=== PATIENT | male | born 1950 | race Caucasian/White ===

== ENCOUNTER 2023-03-11 09:55 | Outpatient (AMB) | payer MEDICARE, OTHER, SELFPAY ==
[2023-03-11 09:56] VITALS: BP 112/68; PULSE 70; O2SAT 95; BMI 29.7
--- NOTE | 2023-03-11 09:56 | A.OFFVIS_ITS ---
Intake Vital Signs 03/11/23 09:56 Height 5 ft 10.5 in Weight 210 lb 2 oz BMI 29.7 BP 112/68 Blood Pressure Location Lt brachial Position Sitting Pulse 70 Pulse Source Pulse Oximeter Pulse Oximetry (%) 95 Oxygen Delivery Method Room Air Intake Visit Reasons: NPV / Sudden Visual Changes / Hx Migraines Intake Note: Pt presents as a NPV for sudden visual changes, hx of Migraines. visual migraines in left eye for years with aura and spikey yellows and blacks. 2019 dizzy and woozy, another time on the highway. Pt states its disorienting. pt states its like a braxton or black shadow coming down across. it was happening 2-3 times a week. I had lung cancer and it was on the back burner. The clopidogrel seems to work. When pt stopped medication he lost vision in right eye again, visual migraines came back. Pt states since being on the clopidogrel, he hasn't had a visual migraine. 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: No Allergies Penicillins Allergy (Unknown, Verified 03/11/23 10:08) Unknown Medication List - Last Reconciled 03/11/23 by REGAN Hernández apixaban (Eliquis) 5 mg PO BID atorvastatin 40 mg PO DAILY clobetasol 0.05% 1 appl topical BID clopidogrel 75 mg PO DAILY empagliflozin (Jardiance) 10 mg PO DAILY furosemide 40 mg PO DAILY hydrocortisone 2.5% 1 appl topical BID PRN ketoconazole 2% 1 appl topical DAILY metoprolol succinate ER 50 mg PO BID metoprolol succinate ER mg PO sacubitril-valsartan 24-26 mg (Entresto) 1 tab PO BID spironolactone 25 mg PO DAILY spironolactone 25 mg PO DAILY HPI HPI Comments History of Present Illness Details 72-yr-old male presents for new pt evaluation of episodes of transient right visual loss. Pt reports PMH significant for lung CA, CHF, a-fib s/p [employer] ICD pacemaker. Pt reports he has a h/o left eye visual aura x's the past 20-30 yrs- would see spiky goddard but not a/w headache, often triggered by certain lights (flickering lights, computers, TV). Then in 2019, he started having 10-30 minute episodes of dizziness, wooziness, disorientation, and and right eye vision loss. The 1st episode he was out shopping. Shortly there after, he had another episode which occurred while he was driving and could not see anything. He then had another episode, where he was sitting in his recliner- during this episode he realized that the vision loss was right sided- like a curtain had been pulled 70% down. These episodes are not a/w headache, nausea, numbness/tingling, focal weakness, watery eyes, red eyes, runny nose, neck pain. He can have a stiff/tight enck at times. He denies any peripheral numbness/tingling, weakness, headaches, dizziness. He notes that it took him some time to have this evaluated, d/t the COVID-19 pandemic and his other health issues. He had a normal optometry eval, ophthalmology eval, and then saw vascular, Dr Thompson. Dr Thompson ordered a neck CTA which revealed a proximal left cervical vertebral artery. He was started on Plavix. On Plavix he has not had any episodes of the right eye vision episodes or the left eye visual aura. Of note, he was started on Eliquis in 2019 (after the onset of the right eye episodes), but this did not seem to any postive/negative effect the right eye s/s. Then more recently, he stopped the Plavix, as vascular was nervous about him continuing Plavix and Eliquis together continuously- within a week off the Plavix, he had a left eye visual aura and then a few days later he had a breakthrough typical right eye vision episode. He had a defibrillator pacemaker implanted in 2019. He was diagnosed w/ St 1A lung cancer in 2020- dx'd on screening d/t h/o tobcco use and underwent RLL lobectomy- he reports he has been in remission since. 04/25/21, CTA OF THE NECK IMPRESSION: 1. 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 Intracranial segment is patent. 2. No significant stenosis or occlusion of bilateral carotid arteries or right vertebral artery. Per Apr 2021 Dr Thompson note: Carotid duplex confirmed 50?to 69% stenosis of the right internal carotid artery without evidence stenosis left carotid artery. 07/23/2019?, [facility], Cardiac MRI w/wo: IMPRESSION: 1. Technically difficult study due to abnormal gating from arrhythmia. 2. The left ventricular chamber was moderate to severely dilated. There is mild global hypokinesis, most pronounced in the septum. There is markedly dyssynchrony between the septum and the lateral wall. End systolic measurements are unreliable due to gaiting abnormality. Visually, left ventricular systolic function appears moderately reduced, 30-40%. Normal LV wall thickness. 3. The RV chamber was normal in size. Overall right ventricular systolic function appears preserved. End systolic measurements unreliable due to gating abnormality. 4. Mild aortic insufficiency. 5. Abnormal first pass perfusion of the intraventricular septum consistent with left bundle branch block or, less likely ischemia. 6. Delayed postcontrast examination is of poor quality. There is likely inferior RV insertion site enhancement consistent with elevated pulmonary artery or right ventricular pressures. Cannot exclude a faint septal stripe of enhancement consistent with nonischemic fibrosis. No MRI evidence of myocardial infarction or hypertrophic cardiomyopathy. 7. There is a very small pericardial effusion. 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 PFSH Medical History (Updated 03/11/23 @ 13:12 by REGAN Hernández) Atrial fibrillation CHF (congestive heart failure) Lung cancer Pacemaker Surgical History (Updated 03/11/23 @ 10:13 by Homa Robles CMA) H/O heart surgery History of back surgery History of knee surgery S/P spinal surgery Family History (Updated 03/11/23 @ 10:14 by Homa Robles CMA) Father Hypertension Mother Diabetes Sister Breast cancer Review of Systems Const Details: See scanned ROS form Physical Exam Vital Signs: Last Vital Signs Pulse 70 03/11/23 09:56 BP 112/68 03/11/23 09:56 Pulse Ox 95 03/11/23 09:56 Oxygen Delivery Method Room Air 03/11/23 09:56 BMI result Body Mass Index 29.7 Const Orientation/consciousness: patient oriented x3 HEENT Other: No palpable scalp tenderness. Head: Yes normocephalic Resp Effort & Inspection: normal respiratory effort and able to speak in complete sentences Back/Spine/Pelvis Other: Bilateral posterior cervical tightness. Cervical ROM: full Left Spurling: normal Right Spurling: normal. Neuro Other: DTRs dulled throughout. General: patient oriented x3 Cranial nerves: Yes CN's II-XII intact bilaterally Cognition (Neuro): normal cognition Gait exam (Neuro): Normal gait present Motor exam (neuro): 5/5 motor strength present throughout Coordination: [id number] test normal Pupils: Normal pupillary reactivity/response: bilateral Psych Appearance: grossly normal Mental Status: mental status grossly normal Speech and movement: Normal speech and movement present Affect: normal affect Attitude: cooperative Thought process: Normal thought process present Assessment & Plan Assessment & Plan (1) Stenosis of left vertebral artery: Code(s): I65.02 - Occlusion and stenosis of left vertebral artery (2) 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 intracranial vascular process, ? migraine aura- responsive to Plavix Code(s): H53.121 - Transient visual loss, right eye Plan Pt advised to undergo CTA- head/neck- to assess status of left cervical vertebral artery stenosis and to assess for any intracranial vascular stenosis. Pt advised to undergo Brain MRI w/wo to assess for any intracranial etiologies of transient vision loss. He may continue Clopidogrel 75mg qd for now. Pt verbalizes understanding that he is at increased risk for bleeding w/ dual Clopidogrel-Eliquis use. If work-up is unremarkable, we could consider trying an alternate migraine aura prevention medication- such as lamotrigeen, topiramate, mementain, or ASA 81mg qd. There are small studies that show effectiveness in using Clopidogrel and ASA together to reduce migraine w/ aura following PFO closure. Follow-up after review of above and in clinic in 3 months or sooner prn. Orders: Orders CT angio head neck Today C34.90 - Malignant neoplasm of unspecified part of unspecified bronchus or lung, H53.121 - Transient visual loss, right eye, H53.9 - Unspecified visual disturbance, I48.91 - Unspecified atrial fibrillation, I65.09 - Occlusion and stenosis of unspecified vertebral artery MR head/brain wo/w con Today C34.90 - Malignant neoplasm of unspecified part of unspecified bronchus or lung, H53.121 - Transient visual loss, right eye, H53.9 - Unspecified visual disturbance, I48.91 - Unspecified atrial fibrillation, I65.09 - Occlusion and stenosis of unspecified vertebral artery Coding Level of Care Code New Pt Level 4 (19381) Diagnoses Stenosis of left vertebral artery I65.02 Visual aura H53.9 Transient visual loss of right eye H53.121
== END 2023-03-11 11:19 | disposition home or self-care (01) ==
PROVIDERS: Visit Provider Nurse Practitioner Family
DX: I65.02 Occlusion and stenosis of left vertebral artery (principal); H53.9 Unspecified visual disturbance; H53.121 Transient visual loss, right eye
CPT/HCPCS: 99204

== ENCOUNTER → 2023-03-11 09:55 | Outpatient (BNVA) | payer MEDICARE, OTHER, SELFPAY | PROVIDERS: Visit Provider Nurse Practitioner Family | DX: I65.02 Occlusion and stenosis of left vertebral artery (principal); H53.9 Unspecified visual disturbance; H53.121 Transient visual loss, right eye | CPT/HCPCS: 99202 ==

== ENCOUNTER 2023-06-17 11:09 | Outpatient (AMB) | payer MEDICARE, OTHER, SELFPAY ==
--- NOTE | 2023-06-17 11:28 | A.OFFVIS_ITS ---
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 if I'm not taking plavix Allergies Penicillins Allergy (Unknown, Verified 06/17/23 11:38) Unknown Medication List - Last Reconciled 06/17/23 by REGAN Hernández apixaban (Eliquis) 5 mg PO BID atorvastatin 40 mg PO DAILY clobetasol 0.05% 1 appl topical BID clopidogrel 75 mg PO DAILY empagliflozin (Jardiance) 10 mg PO DAILY furosemide 40 mg PO DAILY hydrocortisone 2.5% 1 appl topical BID PRN ketoconazole 2% 1 appl topical DAILY metoprolol succinate ER 50 mg PO BID metoprolol succinate ER mg PO sacubitril-valsartan 24-26 mg (Entresto) 1 tab PO BID spironolactone 25 mg PO DAILY spironolactone 25 mg PO DAILY HPI HPI Comments History of Present Illness Details 72-yr-old male presents for f/u visit. Pt denies any significant interval medical changes. Pt has not had any episodes of visual auras or difficulty focusing or partial left vision loss. Denies any visual migraine s/s. Denies any headaches. He has not had MRI yet. Needs to have a pre-screen CXR, which we will order today. [facility] Medical History (Updated 06/17/23 @ 11:47 by REGAN Hernández) CHF (congestive heart failure) Atrial fibrillation Lung cancer Pacemaker Surgical History S/P spinal surgery History of knee surgery H/O heart surgery History of back surgery Family History Father Hypertension Mother Diabetes Sister Breast cancer Review of Systems Const All systems reviewed & are unremarkable except as noted in HPI and below Physical Exam Vital Signs: Last Vital Signs Pulse 59 06/17/23 11:35 Pulse Ox 95 11/03/23 11:35 Oxygen Delivery Method Room Air 11/03/23 11:35 BMI result Body Mass Index 29.7 Const General: cooperative and no acute distress Orientation/consciousness: patient oriented x3 HEENT Head: Yes normocephalic Resp Effort & Inspection: normal respiratory effort and able to speak in complete sentences Neuro General: patient oriented x3, gait normal and CN's II-XI intact bilaterally Cognition (Neuro): normal cognition Motor exam (neuro): 5/5 motor strength present throughout Psych Appearance: grossly normal Mental Status: mental status grossly normal Speech and movement: Normal speech and movement present Affect: normal affect Attitude: cooperative Thought process: Normal thought process present Thought content: Normal thought content present Insight: Good insight present (Psych) Judgement: Good judgement present (Psych) Assessment & Plan Assessment & Plan (1) Transient visual loss of right eye: Comment: ? intracranial vascular process, ? migraine aura- responsive to Plavix Code(s): H53.121 - Transient visual loss, right eye (2) Visual aura: Comment: Left- likely migraine aura w/o headache Code(s): H53.9 - Unspecified visual disturbance (3) Stenosis of left vertebral artery: Code(s): I65.02 - Occlusion and stenosis of left vertebral artery Plan Pt again advised to undergo CTA- head/neck- to assess status of left cervical vertebral artery stenosis and to assess for any intracranial vascular stenosis. Pt again advised to undergo Brain MRI w/wo to assess for any intracranial etiologies of transient vision loss. Will send order for prn Xanax. Orders sent to [facility] CXR ordered per radiologist request d/t pacemaker He may continue Clopidogrel 75mg qd for now. Pt verbalizes understanding that he is at increased risk for bleeding w/ dual Clopidogrel-Eliquis use. If work-up is unremarkable, we could consider trying an alternate migraine aura prevention medication- such as lamotrigeen, topiramate, mementain, or ASA 81mg qd. There are small studies that show effectiveness in using Clopidogrel and ASA together to reduce migraine w/ aura following PFO closure. Follow-up after review of above and in clinic in 3 months or sooner prn. Orders: Orders XR chest w apical lordotic Today I50.9 - Heart failure, unspecified, Z95.0 - Presence of cardiac pacemaker Medications: New alprazolam 0.25 mg orally 1 tab 30 minutes prior to MRI, may repeat x's 1; 2 tabs 0RF 1 day Coding Level of Care Code Est Pt Level 4 (95780) Diagnoses Transient visual loss of right eye H53.121 Visual aura H53.9 Stenosis of left vertebral artery I65.02
[2023-06-17 11:35] VITALS: PULSE 59; O2SAT 95; BMI 29.7
== END 2023-06-17 12:05 | disposition home or self-care (01) ==
PROVIDERS: Visit Provider Nurse Practitioner Family
DX: H53.121 Transient visual loss, right eye (principal); H53.9 Unspecified visual disturbance; I65.02 Occlusion and stenosis of left vertebral artery
CPT/HCPCS: 99214

== ENCOUNTER → 2023-06-17 11:09 | Outpatient (BNVA) | payer MEDICARE, OTHER, SELFPAY | PROVIDERS: Visit Provider Nurse Practitioner Family | DX: H53.121 Transient visual loss, right eye (principal); H53.9 Unspecified visual disturbance; I65.02 Occlusion and stenosis of left vertebral artery | CPT/HCPCS: 99212 ==

== ENCOUNTER 2023-09-21 10:20 | Outpatient (AMB) | payer MEDICARE, OTHER, SELFPAY ==
[2023-09-21 10:33] VITALS: BP 120/70; PULSE 62; O2SAT 98; BMI 29.8
--- NOTE | 2023-09-21 10:33 | A.OFFVIS_ITS ---
Intake Vital Signs 09/21/23 10:33 Height 5 ft 10 in Weight 208 lb BMI 29.8 BP 120/70 Blood Pressure Location Rt brachial Position Sitting Pulse 62 Pulse Source Pulse Oximeter Pulse Oximetry (%) 98 Oxygen Delivery Method Room Air Intake Visit Reasons: 3 mnts f/u for Visual Changes/Migraines-LVM Intake Note: Patient presents for 3 month follow up migraines. I've never had an issue or episode since I've been on clopidrogel. Allergies Penicillins Allergy (Unknown, Verified 09/21/23 10:36) Unknown Medication List - Last Reconciled 09/21/23 by REGAN Hernández alprazolam 0.25 mg orally 1 tab 30 minutes prior to MRI, may repeat x's 1; 1 day apixaban (Eliquis) 5 mg PO BID atorvastatin 40 mg PO DAILY clobetasol 0.05% 1 appl topical BID clopidogrel 75 mg PO DAILY empagliflozin (Jardiance) 10 mg PO DAILY furosemide 40 mg PO DAILY hydrocortisone 2.5% 1 appl topical BID PRN ketoconazole 2% 1 appl topical DAILY metoprolol succinate ER 50 mg PO BID metoprolol succinate ER mg PO sacubitril-valsartan 24-26 mg (Entresto) 1 tab PO BID spironolactone 25 mg PO DAILY spironolactone 25 mg PO DAILY HPI HPI Comments History of Present Illness Details 73-year-old male presents for f/u visit for visual changes. Pt is scheduled to undergo abdominal hernia repair in mid October. He will need to hold his Plavix for at least a week prior to the surgery. He has not had any interval recurrence of left ocular migraine symptoms. The left ocular aura symptoms are typically colorful visual distortions. He has not had any interval recurrence of right sided visual loss. The right-s ided visual symptoms: Stereotypic correa jagged, comes down and an angle to 40- 80% a vertical visual field, then over 15 minutes slowly dissipates into whiteness and then disappears completely, at which time vision returns. He has never had both left and right-sided visual symptoms at the same time. He states he is visual events do not occur with a headache or head discomfort. [facility] T2 and FLAIR hyperintensity foci in the white matter, likely reflecting mild small-vessel disease. He has not done the requested CTA of the head and neck. [facility] Medical History (Updated 09/21/23 @ 20:56 by REGAN Hernández) CHF (congestive heart failure) Atrial fibrillation Lung cancer Pacemaker Surgical History S/P spinal surgery History of knee surgery H/O heart surgery History of back surgery Family History Father Hypertension Mother Diabetes Sister Breast cancer Physical Exam Vital Signs: Last Vital Signs Pulse 62 09/21/23 10:33 BP 120/70 09/21/23 10:33 Pulse Ox 98 09/21/23 10:33 Oxygen Delivery Method Room Air 09/21/23 10:33 BMI result Body Mass Index 29.8 Const General: cooperative and no acute distress Orientation/consciousness: patient oriented x3 Resp Effort & Inspection: normal respiratory effort and able to speak in complete sentences Neuro General: patient oriented x3 Cranial nerves: Yes CN's II-XII intact bilaterally Cognition (Neuro): normal cognition Psych Appearance: grossly normal Mental Status: mental status grossly normal Speech and movement: Normal speech and movement present Affect: normal affect Attitude: cooperative Assessment & Plan Assessment & Plan (1) Transient visual loss of right eye: Comment: ? intracranial vascular process, ? migraine aura- responsive to Plavix, ? Amaurosis Fugax Code(s): H53.121 - Transient visual loss, right eye (2) Visual aura: Comment: Left- likely migraine aura w/o headache Code(s): H53.9 - Unspecified visual disturbance (3) Stenosis of left vertebral artery: Code(s): I65.02 - Occlusion and stenosis of left vertebral artery Plan Patient is again advised to undergo head and neck CTA to assess left vertebral artery stenosis and for intracranial occlusion, stenosis, aneurysm. Hold Plavix prior to upcoming hernia surgery as advised. Patient will continue to hold Plavix through the head and neck CTA. Patient is to monitor for return of ocular symptoms, in the past these have reoccurred within a few days of stopping Plavix. If these recur, we could consider a trial of Nurtec or Ubrelvy. Follow-up in 4 months or sooner as needed. Coding Level of Care Code Est Pt Level 4 (56804) Diagnoses Transient visual loss of right eye H53.121 Visual aura H53.9 Stenosis of left vertebral artery I65.02
== END 2023-09-21 11:36 | disposition home or self-care (01) ==
PROVIDERS: Visit Provider Nurse Practitioner Family
DX: H53.121 Transient visual loss, right eye (principal); H53.9 Unspecified visual disturbance; I65.02 Occlusion and stenosis of left vertebral artery
CPT/HCPCS: 99214

== ENCOUNTER → 2023-09-21 10:20 | Outpatient (BNVA) | payer MEDICARE, OTHER, SELFPAY | PROVIDERS: Visit Provider Nurse Practitioner Family | DX: H53.121 Transient visual loss, right eye (principal); H53.9 Unspecified visual disturbance; I65.02 Occlusion and stenosis of left vertebral artery | CPT/HCPCS: 99212 ==

== ENCOUNTER 2024-01-20 09:16 | Outpatient (AMB) | payer MEDICARE, OTHER, SELFPAY ==
--- NOTE | 2024-01-20 09:39 | MHC.OFFVIS ---
Vital Signs 01/20/24 09:40 Height 5 ft 10 in Weight 198 lb BMI 28.4 BP 130/72 Blood Pressure Location Rt brachial Pulse 65 Pulse Source Pulse Oximeter Pulse Oximetry (%) 95 Oxygen Delivery Method Room Air Intake Visit Reasons: 4m follow up Visual Changes/Migraines-LVM Intake Note: patient presents for 4 month follow up visual changes and migraines.patient came off plavix for surgery and had issues with vision it was not as intense.had xrays done off plavix to check vessels on neck he's not sure if vasculalr had ordered it. Allergies Penicillins Allergy (Unknown, Verified 09/21/23 10:36) Unknown Medication List - Last Reconciled 01/20/24 by REGAN Hernández alprazolam 0.25 mg orally 1 tab 30 minutes prior to MRI, december repeat x's 1; 1 day apixaban (Eliquis) 5 mg PO BID atorvastatin 40 mg PO DAILY clobetasol 0.05% 1 appl topical BID clopidogrel 75 mg PO DAILY empagliflozin (Jardiance) 10 mg PO DAILY furosemide 40 mg PO DAILY hydrocortisone 2.5% 1 appl topical BID PRN ketoconazole 2% 1 appl topical DAILY metoprolol succinate ER 50 mg PO BID metoprolol succinate ER mg PO sacubitril-valsartan 24-26 mg (Entresto) 1 tab PO BID spironolactone 25 mg PO DAILY spironolactone 25 mg PO DAILY HPI Comments Details: 73-yr-old male presents for f/u visit. Pt reports while he was off Plavix for the recent hernia surgery, he did have a recurrence of the left visual aura- saw flashing but not the full spiking arcs, and the right right partial visual loss- more feathered as opposed to full vision obscuration. Then he resumed Plavix, and has not had a recurrence of visual aura. He stopped Plavix 6 days beofre the surgery, and Eliquis 3 days beofore the surgery. The 1st aura occurred to stopping the Eliquis. He is wondering if we can consider stopping Plavix, as he has easy bruising. The right eye aura/visual loss would most affect his ability to drive- now believes now he could drive with the visual s/s, as he could just cover his right eye for a few minutes. He did not have the CTA head and neck- wasn't sure who he talked to about this. He has had left visual aura x's decades. He has had the right sided visual loss episodes since at least 2019. After he had eye exams, vascular started pt on Plavix for tx of the right sided visual loss. Right or left sided vision s/s are never f/b headache. [facility] Medical History (Updated 09/21/23 @ 20:56 by REGAN Hernández) CHF (congestive heart failure) Atrial fibrillation Lung cancer Pacemaker Surgical History (Updated 01/20/24 @ 09:43 by LINA Tsai) H/O hernia repair S/P spinal surgery History of knee surgery H/O heart surgery History of back surgery Family History Father Hypertension Mother Diabetes Sister Breast cancer Physical Exam Vital Signs: Last Vital Signs Pulse 65 01/20/24 09:40 BP 130/72 01/20/24 09:40 Pulse Ox 95 01/20/24 09:40 Oxygen Delivery Method Room Air 01/20/24 09:40 BMI result Body Mass Index 28.4 Const General: cooperative and no acute distress Orientation/consciousness: patient oriented x3 Resp Effort & Inspection: normal respiratory effort and able to speak in complete sentences Neuro General: patient oriented x3 Cranial nerves: Yes CN's II-XII intact bilaterally Cognition (Neuro): normal cognition Psych Appearance: grossly normal Mental Status: mental status grossly normal Speech and movement: Normal speech and movement present Affect: normal affect Attitude: cooperative Assessment & Plan Assessment & Plan (1) 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 intracranial vascular process, ? migraine aura- responsive to Plavix, ? Amaurosis Fugax Code(s): H53.121 - Transient visual loss, right eye Category: Medical (3) Stenosis of left vertebral artery: Code(s): I65.02 - Occlusion and stenosis of left vertebral artery Category: Medical Plan Patient is again advised to undergo head and neck CTA to assess left vertebral artery stenosis and for intracranial occlusion, stenosis, aneurysm. For now continue Plavix 75mg. If head and neck CTA reassuirng- will consider trialing decreasing Plavix to 75mg qod or 37.5mg (if tab can be safely split). Patient is to monitor for return of ocular symptoms, in the past these have reoccurred within a few days of stopping Plavix. Future considerations- trial of Nurtec or Ubrelvy. ? Follow-up upon review of above and in 6 months or sooner as needed. Coding Level of Care Code Est Pt Level 4 (26528) Diagnoses Visual aura H53.9 Transient visual loss of right eye H53.121 Stenosis of left vertebral artery I65.02
[2024-01-20 09:40] VITALS: BP 130/72; PULSE 65; O2SAT 95; BMI 28.4
== END 2024-01-20 10:28 | disposition home or self-care (01) ==
PROVIDERS: Visit Provider Nurse Practitioner Family
DX: H53.9 Unspecified visual disturbance (principal); H53.121 Transient visual loss, right eye; I65.02 Occlusion and stenosis of left vertebral artery
CPT/HCPCS: 99214

== ENCOUNTER → 2024-01-20 09:16 | Outpatient (BNVA) | payer MEDICARE, OTHER, SELFPAY | PROVIDERS: Visit Provider Nurse Practitioner Family | DX: H53.9 Unspecified visual disturbance (principal); H53.121 Transient visual loss, right eye; I65.02 Occlusion and stenosis of left vertebral artery | CPT/HCPCS: 99212 ==

== ENCOUNTER 2024-08-07 08:44 | Outpatient (AMB) | payer MEDICARE, OTHER, SELFPAY ==
[2024-08-07 08:52] VITALS: BP 130/68; BMI 27.8
--- NOTE | 2024-08-07 08:52 | MHC.OFFVIS ---
Vital Signs 08/07/24 08:52 Height 5 ft 10 in Weight 194 lb BMI 27.8 BP 130/68 Blood Pressure Location Rt brachial Position Sitting Intake Visit Reasons: 6 mo f/u Intake Note: Patient presents for 6 month follow up. Allergies Penicillins Allergy (Unknown, Verified 08/07/24 08:56) Unknown Medication List - Last Reconciled 08/07/24 by REGAN Hernández alprazolam 0.25 mg orally 1 tab 30 minutes prior to MRI, may repeat x's 1; 1 day apixaban (Eliquis) 5 mg PO BID atorvastatin 40 mg PO DAILY clobetasol 0.05% 1 appl topical BID clopidogrel 75 mg PO DAILY empagliflozin (Jardiance) 10 mg PO DAILY furosemide 40 mg PO DAILY hydrocortisone 2.5% 1 appl topical BID PRN ketoconazole 2% 1 appl topical DAILY metoprolol succinate ER 50 mg PO BID metoprolol succinate ER mg PO sacubitril-valsartan 24-26 mg (Entresto) 1 tab PO BID spironolactone 25 mg PO DAILY spironolactone 25 mg PO DAILY HPI Comments Details: 73-yr-old male presents for f/u visit of visual aura. Patient denies any significant interval medical history changes. He continues to be followed closely by [facility] Cardiology and [facility] vascular. Interval bilateral carotid duplex did not show any significant ICA stenosis, stable left vertebral artery stenosis with visible collaterals. He denies any interval episodes of visual aura. Patient today does note that when he does have a visual aura, it can come on in an opportune times, such as when driving. He continues to be compliant with Plavix in setting of Eliquis use for history of AFib. He is prone to bruising and some bleeding due to mild injuries, such as scraping his hands while he is doing a project. She did have an interval fall, he did step off a curb, and landed on his knees and hands. He did cut his thumb, he was able to manage this at home however. 06/06/2024, Carotid Duplex Scan Bilat Comparison is made to the previous CTA study dated 04/24/2021. Summary: Right Side: 1-49% stenosis in the Internal Carotid Artery. Antegrade flow in the Vertebral Artery. Multiphasic flow is seen in the Subclavian Artery. Left Side: 1-49% stenosis in the Internal Carotid Artery. Known Occlusion of the Vertebral Artery, unchanged with visible collaterals. Multiphasic flow is seen in the Subclavian Artery. He has had left visual aura x's decades. He has had the right sided visual loss episodes since at least 2019. After he had eye exams, vascular started pt on Plavix for tx of the right sided visual loss. Right or left sided vision s/s are never f/b headache. [facility] Medical History CHF (congestive heart failure) Atrial fibrillation Lung cancer Pacemaker Surgical History H/O hernia repair S/P spinal surgery History of knee surgery H/O heart surgery History of back surgery Family History Father Hypertension Mother Diabetes Sister Breast cancer Physical Exam Vital Signs: Last Vital Signs BP 130/68 08/07/24 08:52 BMI result Body Mass Index 27.8 Const General: cooperative and no acute distress Orientation/consciousness: patient oriented x3 Resp Effort & Inspection: normal respiratory effort and able to speak in complete sentences Neuro General: patient oriented x3 Cranial nerves: Yes CN's II-XII intact bilaterally Cognition (Neuro): normal cognition Psych Appearance: grossly normal Mental Status: mental status grossly normal Speech and movement: Normal speech and movement present Affect: normal affect Attitude: cooperative Assessment & Plan Assessment & Plan (1) 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 intracranial vascular process, ? migraine aura- responsive to Plavix, ? Amaurosis Fugax Code(s): H53.121 - Transient visual loss, right eye Category: Medical (3) Stenosis of left vertebral artery: Code(s): I65.02 - Occlusion and stenosis of left vertebral artery Category: Medical Plan Reviewed recent carotid ultrasound report, mild bilateral ICA stenosis, known left vertebral artery occlusion with visible collaterals. Reviewed alternative treatments to Plavix for visual aura, which include lamotrigine and tricyclic antidepressants, however these are contraindicated for patient due to history of congestive heart failure and AFib. For now continue Plavix 75mg. Patient advised that while on anticoagulation and clopidogrel, he should seek urgent medical attention if he were to fall and strike his head. Follow-up with cardiology and vascular scheduled. Future considerations- trial of Nurtec or Ubrelvy. ? Pt to follow-up in 12 months or sooner prn. Coding Level of Care Code Est Pt Level 4 (50881) Diagnoses Visual aura H53.9 Transient visual loss of right eye H53.121 Stenosis of left vertebral artery I65.02
== END 2024-08-07 09:45 | disposition home or self-care (01) ==
PROVIDERS: PCP Internal Medicine; Visit Provider Nurse Practitioner Family
DX: H53.9 Unspecified visual disturbance (principal); H53.121 Transient visual loss, right eye; I65.02 Occlusion and stenosis of left vertebral artery
CPT/HCPCS: 99214

== ENCOUNTER → 2024-08-07 08:44 | Outpatient (BNVA) | payer MEDICARE, OTHER, SELFPAY | PROVIDERS: Visit Provider Nurse Practitioner Family | DX: H53.9 Unspecified visual disturbance (principal); H53.121 Transient visual loss, right eye; I65.02 Occlusion and stenosis of left vertebral artery | CPT/HCPCS: 99212 ==

== ENCOUNTER 2025-08-01 09:17 | Outpatient (AMB) | payer MEDICARE, OTHER, SELFPAY ==
[2025-08-01 09:31] VITALS: BP 100/60; PULSE 77; O2SAT 97; BMI 27.5
--- NOTE | 2025-08-01 09:31 | MHC.OFFVIS ---
Vital Signs 08/01/25 09:31 Height 5 ft 10 in Weight 192 lb BMI 27.5 BP 100/60 Blood Pressure Location Rt brachial Position Sitting Pulse 77 Pulse Source Pulse Oximeter Pulse Oximetry (%) 97 Oxygen Delivery Method Room Air Intake Visit Reasons: 1 yr f/u appt Intake Note: Patient presents for 6 month follow up. Salt Operator Required: No Accompanied by: Self / Same As Patient Allergies Penicillins Allergy (Unknown, Verified 08/01/25 09:34) Unknown Medication List - Last Reconciled 08/01/25 by REGAN Hernández alprazolam 0.25 mg orally 1 tab 30 minutes prior to MRI, may repeat x's 1; 1 day apixaban (Eliquis) 5 mg PO BID atorvastatin 40 mg PO DAILY clobetasol 0.05% 1 appl topical BID clopidogrel 75 mg PO DAILY empagliflozin (Jardiance) 10 mg PO DAILY furosemide 40 mg PO DAILY hydrocortisone 2.5% 1 appl topical BID PRN ketoconazole 2% 1 appl topical DAILY metoprolol succinate ER 50 mg PO BID metoprolol succinate ER mg PO sacubitril-valsartan 24-26 mg (Entresto) 1 tab PO BID spironolactone 25 mg PO DAILY spironolactone 25 mg PO DAILY HPI Comments Details: 74-yr-old male presents for f/u visit of visual aura. Patient denies any significant interval medical history changes, however he has suffered a left hand non-appriximated skin tear w/ significant bleeding secondary to removing a band-aid, which his control operator has been treating. He continues to be followed closely by [facility] Cardiology and [facility] vascular. Interval bilateral carotid duplex did not show any notable increase in assymptomatic ICA stenosis, stable left vertebral artery stenosis with visible collaterals. He denies any interval episodes of visual aura. He continues to be compliant with Plavix in setting of Eliquis use for history of AFib. He is prone to bruising and some bleeding due to mild injuries, such as scraping his hands while he is doing a project or may cut his fingers when peeling potatoes. 06/20/2025, Carotid Duplex Scan Bilat Physician Conclusions Summary: Right Side: 1-49% stenosis in the Internal Carotid Artery. velocities are at the upper limit of the criteria. Antegrade flow in the Vertebral Artery. Multiphasic flow is seen in the Subclavian Artery. Left Side: 1-49% stenosis in the Internal Carotid Artery. Known absent flow in the Vertebral Artery. Elevated, multiphasic flow is seen in the Subclavian Artery. Aura and headache history: He has had left visual aura x's decades. He has had the right sided visual loss episodes since at least 2019. After he had eye exams, vascular started pt on Plavix for tx of the right sided visual loss. Right or left sided vision s/s are never f/b headache. PFSH Medical History CHF (congestive heart failure) Atrial fibrillation Lung cancer Pacemaker Surgical History H/O hernia repair S/P spinal surgery History of knee surgery H/O heart surgery History of back surgery Family History Father Hypertension Mother Diabetes Sister Breast cancer Physical Exam Vital Signs: Last Vital Signs Pulse 77 08/01/25 09:31 BP 100/60 08/01/25 09:31 Pulse Ox 97 08/01/25 09:31 Oxygen Delivery Method Room Air 08/01/25 09:31 BMI result Body Mass Index 27.5 Const General: cooperative and no acute distress Orientation/consciousness: patient oriented x3 Resp Effort & Inspection: normal respiratory effort and able to speak in complete sentences Neuro Other: left hand pressure General: patient oriented x3 Cranial nerves: Yes CN's II-XII intact bilaterally Cognition (Neuro): normal cognition Psych Appearance: grossly normal Mental Status: mental status grossly normal Speech and movement: Normal speech and movement present Affect: normal affect Attitude: cooperative Assessment & Plan Assessment & Plan (1) 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 intracranial vascular process, ? migraine aura- responsive to Plavix, ? Amaurosis Fugax Code(s): H53.121 - Transient visual loss, right eye Category: Medical (3) Stenosis of left vertebral artery: Code(s): I65.02 - Occlusion and stenosis of left vertebral artery Category: Medical Plan Reviewed interval updated carotid ultrasound report, mild bilateral ICA stenosis, known left vertebral artery occlusion with visible collaterals. Continue Plavix 75mg. Patient advised that while on anticoagulation and clopidogrel, he should seek urgent medical attention if he were to fall and strike his head. Continue left hand skin tear wound care per dermatology. Suggested he use coban-type wrap in place of tape/paper tape/band-aids. Consider trying metal cut resistant gloves when peeling or using sharp cutting tools Follow-up with cardiology and vascular scheduled. Future considerations- trial of Nurtec or Ubrelvy. ? Pt to follow-up in 12 months or sooner prn. Coding Level of Care Code Est Pt Level 4 (30183) Diagnoses Visual aura H53.9 Transient visual loss of right eye H53.121 Stenosis of left vertebral artery I65.02
--- OUTSIDE RECORDS SUMMARY | 2025-08-01 10:39 | XMS_ITS ---
Author Name [facility] Organization Unknown Care Team Organization Name Specialty Phone Email Start Date End Da te [facility] ACO 04/03/2025 [facility] Neisha Ivan Primary Care 01/21/202303/15 [facility] Kaylie, PROVIDER Primary Care 10/20/202203/15 [facility] Vidya Primary Care 06/22/2022 04/02/2024
--- OUTSIDE RECORDS SUMMARY | 2025-08-01 10:39 | XMS_ITS | Clinical Summary ---
Author Organization [facility] Prior to 01/12/[address] [place] [id number] Care Team Providers Care Parachute Rigger Name Role Phone Unavailable Primary Care Provider Unavailabl e Allergies Active Allergy Reactions Criticality Noted Date Comments Penicillins 11/16/2021 Medications Medication Sig Dispensed Refills Start Date End Date Status Eliquis 5 MG TABS tablet 0 08/29/2021 Active atorvastatin (LIPITOR) tablet 40 mg Take 40 mg by mouth daily. 0 08/24/2021 Active furosemide (LASIX) 20 MG tablet Take 20 mg by mouth. 0 01/31/2020 Active metoprolol succinate (TOPROL-XL) 24 hr tablet 50 mg Take 50 mg by mouth. 0 01/31/2020 Active spironolactone (ALDACTONE) tablet 25 mg Take 25 mg by mouth daily. 0 09/01/2021 Active sacubitril-valsartan (Entresto) 24-26 MG per tablet Take by mouth. 0 01/31/2020 Active Active Problems No known active problems Family History Medical History Relation Name Comments Cancer Maternal Grandmother Breast Cancer Cancer Sister Breast Relation Name Status Comments Maternal Grandmother Sister Social History Tobacco Use Types Packs/Day Years Used Date Smoking Tobacco: Former Smokeless Tobacco: Never Alcohol Use Standard Drinks/Week Comments Not Currently 0 (1 standard drink = 0.6 oz pur e alcohol) Sex and Gender Information Value Date Recorded Sex Assigned at Not on file Gender Identity Not on file Sexual Orientation Not on file Job Start Date Occupation Industry Not on file Not on file Not on file Last Filed Vital Signs Vital Sign Reading Time Taken Comments Blood Pressure 138/54 11/16/2021 3:09 PM EDT Pulse 75 11/16/2021 3:09 PM EDT Temperature 36.2 C (97.2 F) 11/16/2021 3:09 PM EDT Respiratory Rate - - Oxygen Saturation 99% 11/16/2021 3:09 PM EDT Inhaled Oxygen Concentration - - Weight 88.9 kg (196 lb) 11/16/2021 3:09 PM EDT Height 179.1 cm (5' 10.5 ) 11/16/2021 3:09 PM ED T Body Mass Index 27.73 11/16/2021 3:09 PM EDT Plan of Treatment Health Maintenance Due Date Last Done Comments Hepatitis C Screening 1950 COVID-19 Vaccine (#1) 02/24/1951 Depression Screening 1964 Preventative Health Evaluation 1970 DTap / Tdap / Td (1 - Tdap) 1971 Colon Cancer Screening (Colonoscopy) 1997 Shingrix-Zoster Vaccine (1 of 2) 2002 Fall Risk Assessment 2017 Pneumococcal Vaccine (1 of 1 - PCV) 2017 Influenza Vaccine (#1) 2025 RSV Adult > 60+ Yrs or Pregn ant (1 - 1-dose 75+ series) 2027 Hepatitis B Vaccines Aged Out No long er eligible based on patient's age to complete this topic RSV Ped < 20 months Aged Out No longe r eligible based on patient's age to complete this topic
--- OUTSIDE RECORDS SUMMARY | 2025-08-01 10:39 | XMS_ITS | Clinical Summary ---
Author Organization [address] [place] [address] [place] [phone] Phone Care Team Providers Care Auto Cleaner Name Role Phone Leila Dasilva MD Primary Care Provider [phone] Allergies Active Allergy Reactions Criticality Noted Date Comments Penicillin G Benzathine Rash 12/29/2005 Penicillins Rash 04/06/2010 Other Reaction(s): Edema of oral soft tissues, Eruption of skin Medications clopidogreL (PLAVIX) 75 mg tablet Take 1 tablet (75 mg total) by mouth 1 (one) time each day. Vascular fills meds Active docusate sodium (COLACE) 100 mg tablet Take 1 tablet (100 mg total) by mouth 1 (one) time each day. OTC Active ketoconazole (NIZORAL) 2 % cream Apply sparingly 1 - 2 times a day along with hydrocortisone 2.5% to affected areas as needed 0 Active apixaban (ELIQUIS) 5 mg tablet Take 1 tablet (5 mg total) by mouth 2 (two) times a day. 180 tablet 3 5 Active empagliflozin (Jardiance) 10 mg tablet Take 1 tablet (10 mg total) by mouth 1 (one) time each day. 90 tablet 3 5 Active furosemide (LASIX) 20 mg tablet Take 1 tablet (20 mg total) by mouth 1 (one) time each day. (REDUCED 05/30/23) 90 tablet 3 5 Active metoprolol succinate (TOPROL-XL) 100 mg 24 hr tablet Take 1.5 tablets (150 mg total) by mouth 1 (one) time each day. 135 tablet 3 5 Active sacubitriL-kelvin sartan (Entresto) 24-26 mg per tablet Take 1 tablet by mouth 2 (two) times a day. 180 tablet 3 5 Active spironolactone (ALDACTONE) 25 mg tablet Take 1 tablet (25 mg total) by mouth 1 (one) time each day. 90 tablet 3 5 Active atorvastatin (LIPITOR) 40 mg tablet TAKE 1 TABLET BY MOUTH DAILY 90 tablet 1 5 Active Active Problems Problem Noted Date Diagnosed Date History of lung cancer 01/31/2025 Assessment & Plan (01/31/2025 3:15 PM EDT): Mr. Netta Tyson is a 74-year-old male who had a right lower lobectomy in October 2021 for stage Ib squamous cell carcinoma. No adjuvant treatment was given at that time. The patient's most recent surveillance chest CT scan done in January 2025 shows a new small nodule in the left upper lobe (series 7, image 102), bronchiolar wall thickening, reticular nodular opacities, peribronchial wall thickening, and fine linear mild interstitial thickening present in the lung bases. He did have a 2 to 3-day history of light bloody streaked sputum several weeks ago during significant coughing episodes likely related to his upper respiratory infection/bronchitis. The patient does admit to having a 3 to 4-month history now of a cough with occasional white sputum production. I recommended that if his cough does not go away over the next month or so that he should likely be evaluated by pulmonology. He has had several waxing and waning pulmonary nodules over the course of his surveillance after lung cancer diagnosis. The new small left upper lobe pulmonary nodule is likely related to an infection or inflammation especially in the setting of his recent upper respiratory infection. Given its size and his history of waxing and waning nodules we will follow-up on this with his next surveillance CT scan in 1 year. The patient will have a follow-up visit in the office after that to discuss his findings and perform physical exam. Patient is educated to call us should they have any questions or concerns prior to that next CT. Pulmonary nodules 02/10/2023 CLEMENTE (obstructive sleep apnea) 12/02/2022 VT (ventricular tachycardia) 12/02/2022 Vision loss of right eye 11/24/2022 Vertebrobasilar artery stenosis 12/24/2021 NICM (nonischemic cardiomyopathy) 04/22/2021 PAF (paroxysmal atrial fibrillation) 08/12/2020 Overview (07/10/2024): Atrial fibrillation Atrial fibrillation 12/11/2018 Heart failure 12/11/2018 Spondylolisthesis at L5-S1 level 08/28/2014 Hepatic cyst 07/29/2014 Overview (07/10/2024): Accidental finding on MRI of back, confirmed by US 07/2014 Hyperglycemia 07/18/2014 HTN (hypertension) 06/06/2013 RIOS (dyspnea on exertion) 05/12/2010 Overview (07/10/2024): Extensive evaluation , echocardiogram, exercise stress testing, PFT (-). Prostate nodule 03/25/2010 Overview (07/10/2024): Follows with urology, exam as of 2013 (-) Degenerative arthritis of lumbar spine 0 Resolved Problems Problem Noted Date Diagnosed Date Resolved Date Pneumothorax, right 11/26/2021 02/01/20 25 Encounters Date Type Department Care Team Description 07/22/2025 7:25 PM EST Ancillary Procedure [facility] Cardiology [facility] [address] [facility] [address] [place] [address] 07/08/2025 7:40 AM EST Lab Draw Station - [address] [phone] [facility] 07/08/2025 Results Follow-Up [facility] [address] [place] [address] Mayra Bui PA 06/19/2025 7:30 PM EST Ancillary Procedure [facility] [address] [place] [address] 06/17/2025 10:40 AM EST Office Visit [facility] [address] [place] [address] Mayra Bui PA Paroxysmal atrial fibrillation (CMS/HCC V24, CMS/HCC V28) (Primary Dx); CLEMENTE (obstructive sleep apnea); PAF (paroxysmal atrial fibrillation) (CMS/HCC V24, CMS/HCC V28); Primary hypertension; NICM (nonischemic cardiomyopathy) (CMS/HCC V24, CMS/HCC V28); VT (ventricular tachycardia) (CMS/HCC V24, CMS/HCC V28) 05/21/2025 1:25 PM EDT Ancillary Procedure [facility] [address] [place] [id number] from Last 3 Months Immunizations Immunization Administration Dates Next Due Anthrax 05/15/2004, 3,09/19/1999,03/27,10/08/1998,09/24/1998,09/10/1998 RUoD-IfbZ-TZA (Pediarix) 6 w ks to less than 7yo 09/09/1970 H1N1 Inj 09/15/2009 Hepatitis A Adult (Havrix; V aqta) 19yo and older 07/20/1997,01/26/1997 Hepatitis B (Sfidijg-T-Hapsh , Recombivax HB-Adult) 19yo and older 07/20/1997,03/23/1997,01/26/1997 Influenza Quadravalent, 0.5m l (Fluad) 65yo and older 04/26/2022 Influenza Quadravalent, 0.5m l (Fluzone High-dose) 65yo and older 05/17/2023,04/30/2021 Influenza Whole 08/22/2004, 3,06/07/2002,06/05,08/20/2000,05/16/1999,06/21/1998 ,07/20/1997,06/18/1996 Influenza trivalent, 0.5mL ( Fluad) 65yo and older 05/17/2024 Influenza trivalent, 0.5mL, preservative free (Fluarix; FluLaval; Fluzone) ages 6mo and older (Afluria) 3 years and older 04/11/2020 Influenza trivalent, with pr eservative (Fluzone; Afluria) 6mo and older 06/10/2016,06/24/2015,06/06/2013 Influenza, Unspecified 04/30/2021,2019,05/13/2014,04/24,08/02/2012,06/05/2011 MMR, measles mumps and rubel la Live (Priorix; M-M-R II) 12mo and older 07/08/1998 Meningococcal Polysaccharide 06/07/2002,01/26/19 97 OPV 09/09/1970 Pneumococcal conjugate 13 va lent (Prevnar 13, PCV13) 2mo and older 04/03/2021 Pneumococcal polysaccharide 23 valent (Pneumovax 23) 2yo and older 02/09/2023 Pneumococcal, Unspecified 04/03/2021 Td Tetanus diptheria (Tdvax) 7yo and older 03/06/2018,06/05/2001,11/18/1990 Typhoid Vaccine, Parental, Acetone-Killed, Dried (U.S. ) 01/29/1997 Typhoid Vaccine, Parenteral, Other Than Acetone-killed, Dried 07/14/2004,07/21/2002,06/18/2000 Yellow Fever (YF-VAX) 9mo and older 04/21/1997 Zoster Live 04/12/2013 Zoster recombinant (Shingrix ) 19yo and older 06/26/2021,04/03/2021 Surgical History Surgery Date Site/Laterality Comments COLONOSCOPY 03/23/2010 PROCEDURE: [facility] COLONOSCOPY STOMA DX INCLUDING COLLJ SPEC SPX; COMMENT: Up to cecum, good preparation, small polyp not removed, otherwise normal colon exam COLONOSCOPY W/ POLYPECTOMY 05/23/2015 PROCEDURE: [facility] COLSC FLX W/RMVL OF TUMOR POLYP LESION SNARE TQ; COMMENT: aenoma and tics; repeat in 5 yrs OTHER SURGICAL HISTORY PROCEDURE: [facility] RESCJ&BRONCHOPLASTY PFRMD TM LOBEC/SGMECTOMY HERNIA REPAIR PROCEDURE: VA REPAIR FIRST ABDOMINAL WALL HERNIA TONSILLECTOMY ADENOIDECTOMY, BILATERAL MYRINGOTOMY AND TUBES PROCEDURE: VA TONSILLECTOMY & ADENOIDECTOMY <AGE 12 Medical History Medical History Date Comments Back pain 02/11/2010 DX:Back pain Prostate nodule 03/25/2010 DX:Prostate nodu le Atypical chest pain 05/11/2010 DX:Atypical chest pain RIOS (dyspnea on exertion) 05/12/2010 DX:RIOS (dyspnea on exertion) HTN (hypertension) 06/06/2013 DX:HTN (hyper tension) Hepatic cyst 07/29/2014 DX:Hepatic cyst; COMMENT: Accidental finding on MRI of back, confirmed by US 07/2014 Knee pain 08/21/2014 DX:Knee pain; CO MMENT: Pt follows with orthopedic, Doctor Abnormal CXR DX:Abnormal CXR CHF (congestive heart failur e) (CMS/HCC V24, CMS/HCC V28) DX:CHF (congestive heart fa ilure) (HCC) Cancer of lower lobe of righ t lung (CMS/HCC V24, CMS/HCC V28) 11/04/2021 DX:Cancer of lower lobe of right lung (HCC); COMMENT: Stage 1B squamous cell carcinoma of the right lower lobe of lung. S/p RLL lobectomy 10/21/2021 Pneumothorax, right 11/26/2021 Family History Medical History Relation Name Comments Colon cancer Father Other: some type of cancer Father Breast cancer Maternal Grandmother Stroke Mother at age 67 Breast cancer Sister Relation Name Status Comments Father Maternal Grandmother Mother Sister Social History Tobacco Use Types Packs/Day Years Used Date Smoking Tobacco: Former Cigarettes 1.5 Q uit: 08/15/2018 Smokeless Tobacco: Never Tobacco Cessation:Counseling Given: Not Answered Alcohol Use Standard Drinks/Week Comments Yes 0 (1 standard drink = 0.6 oz pur e alcohol) Housing Instability Answer Date Recorde d Are you worried that in the next 2 months you may not have stable housing? No 09/05/2024 Food Access & Nutrition Answer Date Rec orded Do you have access to a vari ety of food including fruits and vegetables? Yes 09/05/2024 Access to Healthcare Answer Date Record ed Within the last 3 months, ho w many times did you visit the emergency department for your medical care? 0 09/05/2024 Health Literacy Answer Date Recorded How often do you need to hav e someone help you when you read instructions, pamphlets, or other written material from your doctor or pharmacy? Patient declined 09/05/2024 Caregiver: How often do you need to have someone help you when you read instructions, pamphlets, or other written material from your doctor or pharmacy? Not on file 025 Financial Risk Answer Date Recorded How hard is it for you to pa y for the very basics like food, housing, medical care, and air conditioning / heating? Very hard 09/05/2024 Transportation Answer Date Recorded Has the lack of transportati on kept you from meetings, work, or from getting things needed for daily living? Patient declined 09/05/2024 Has the lack of transportati on kept you from medical appointments or from getting medications? Patient declined 09/05/2024 Social Isolation Answer Date Recorded How often do you feel lonely or isolated from those around you? Patient declined 09/05/2024 Food Risk Answer Date Recorded Within the past 12 months we worried whether our food would run out before we got money to buy more. Never true 09/05/2024 Within the past 12 months th e food we bought just didn't last and we didn't have money to get more. Never true 09/05/2024 Dependent Care Answer Date Recorded Do you need help finding or paying for care for your loved ones. For example, child adolescent psychiatrist or elderly care for an older adult? Patient declined 09/05/2024 Education Answer Date Recorded Do you think completing more education or training, like finishing a GED, going to college, or learning a trade, would be helpful for you? Patient declined 09/05/2024 Employment and Income Answer Date Recor ded During the last four weeks, have you been actively looking for work? Patient declined 09/05/2024 Living Situation Answer Date Recorded What is your living situation? Unrecognized valu e 09/05/2024 Sex and Gender Information Value Date Recorded Sex Assigned at Male 08/22/2024 7:08 PM EST Legal Sex Male 6:03 PM EST Gender Identity Male 08/22/2024 7:08 PM EST Sexual Orientation Straight 12/02/2024 3: 49 PM EDT Last Filed Vital Signs Vital Sign Reading Time Taken Comments Blood Pressure 120/78 06/17/2025 10:47 AM EST Pulse 70 06/17/2025 10:47 AM EST Temperature 37.1 C (98.8 F) 01/31/2025 11:01 AM EDT Respiratory Rate 14 01/31/2025 11:01 AM EDT Oxygen Saturation 95% 06/17/2025 10:47 AM EST Inhaled Oxygen Concentration - - Weight 86.2 kg (190 lb) 06/17/2025 10:47 AM EST Height 177.8 cm (5' 10 ) 06/17/2025 10:47 AM EST Body Mass Index 27.26 06/17/2025 10:47 AM EST Plan of Treatment Upcoming Encounters Date Type Department Care Team (Late st Contact Info) Description 09/11/2025 9:00 AM EST Ancillary Procedure [facility] [address] [place] [address] Health Maintenance Due Date Last Done Comments IPV Vaccines (2 of 3 - Adult catch-up series) 10/07/1970 09/09/1970, 09/09/1970 RSV Immunization Adult Patients (1 - Risk 50-74 years 1-dose series) 2002 Medicare Annual Wellness Visit 05/17/2025 05/17/2024 Falls Risk Assessment 09/05/2025 09/05/2024, 024 Social Influencers of Health Screening 09/05/2025 09/05/2024 COVID-19 Vaccine (9 - Pfizer risk 2024- season) 2025 04/19/2025, 05/18/2024, 05/17/2023, Additional history exists Hypertension/CHF/CAD Annual BMP Blood Test 12/04/2025 12/04/2024, 05/15/2024, 05/15/2024, Additional history exists Colorectal Cancer Screening: Colonoscopy 06/23/2026 06/23/2021 DTaP,Tdap,and Td Vaccines (8 - Td or Tdap) 03/06/2028 03/06/2018, 2010, 2010, Additional history exists Cholesterol Screening (Lipid Panel) 07/08/2030 07/08/2025, 04/18/2024, 04/18/2024 Hepatitis A Vaccines Aged Out 07/20/1997, 01/26/19 97 No longer eligible based on patient's age to complete this topic Hepatitis B Vaccines Completed 07/20/1997, 03/23/1997, 01/26/1997, Additional history exists MMR Vaccines Aged Out 07/08/1998 No longer eligi ble based on patient's age to complete this topic Meningococcal ACWY Vaccine Aged Out 06/07/2002, No longer eligible based on patient's age to complete this topic Hepatitis C Screening Completed 09/11/2014 Abdominal Aortic Aneurysm (AAA) Screen Completed 11/27/2018 Zoster Vaccines Completed 06/26/2021, 03/16, 04/12/2013 Lung Cancer Screening (Low Dose CT) Discontinued 08/31/2021, 05/29/2021 Pneumococcal Vaccine: 50+ Years Completed 02/09/2023, 04/03/2021, 04/03/2021 Depression Screening Completed 09/05/2024, 05/17/20 Influenza Vaccine Completed 04/19/2025, , 05/17/2024, Additional history exists HIB Vaccines Aged Out No longer eligi ble based on patient's age to complete this topic HPV Vaccines Aged Out No longer eligi ble based on patient's age to complete this topic Meningococcal B Vaccine Aged Out No l onger eligible based on patient's age to complete this topic RSV Immunization Patients Under 20 months Aged Out No longer eligible based on patient's age to complete this topic Varicella Vaccines Aged Out No longer eligible based on patient's age to complete this topic Medical Devices Implanted Type Area Medicine Assistant Device Identifier Shelf Expiration Date Model / Serial / Lot Abbt-Stju Quadra Assura Mp 3369-40q [id number] Implanted:07/16 (Quantity not on file) Cardiac CLINICAL RESEARCH DIRECTOR-D ICD [facility] QUADRA ASSURA MP 3369-40Q / [id number] / Abbt-Stju 3369-40q Quadra Assura Mp(Tm) [id number] Implanted:10/2019 by Hapral Oshea MD (Quantity not on file) Cardiac CLINICAL RESEARCH DIRECTOR-D ICD Left: Chest [facility] 3369-40Q QUADRA ASSURA MP(TM) / [id number] / Procedures Procedure Name Priority Date/Time Associated Diagnosis Comments CARDIAC DEVICE CHECK- REMOTE- MURJ Routine 07/22/2025 7:21 PM EST LIPID PANEL WITH REFLEX TO DIRECT LDL Routine 07/08/2025 7:50 AM EST Hyperglycemia CARDIAC DEVICE CHECK- REMOTE- MURJ Routine 06/19/2025 7:25 PM EST ECG 12-LEAD Routine 06/17/2025 11:10 AM EST Paroxysmal atrial fibrillation (CMS/HCC V24, CMS/HCC V28) CARDIAC DEVICE CHECK- REMOTE- MURJ Routine 05/21/2025 1:24 PM EDT BASIC METABOLIC PANEL Routine 12/04/2024 10:40 AM EDT NICM (nonischemic cardiomyopathy) (CMS/HCC V24, CMS/HCC V28) Hypertension, unspecified type DEPRESSION SCREENING Routine 05/17/2024 FALLS RISK ASSESSMENT Routine 05/17/2024 CT LUNG SCREENING LOW DOSE Routine 08/31/2021 8:43 AM EST Personal history of nicotine dependence COLONOSCOPY Routine 06/23/2021 US ABDOMINAL AORTA REAL TIME SCREEN STUDY AAA Routine 11/27/2018 8:22 AM EDT Encounter for general adult medical examination without abnormal findings Cough Tobacco use HEPATITIS C SCREENING Routine 09/11/2014 from Last 3 Months or Most Recently Relevant to Health Maintenance Results * Cardiac device check - Remote- MURJ (07/22/2025 7:21 PM EST) Only the most recent of3 resultswithin the time period is included. Date Time Interrogation Session [id number] CV DEVICE CHECK Type Interrogation Session Remote Scheduled CV DEVICE CHECK Implantable Pulse Generator Medicine Assistant [employer] CV DEVICE CHECK Implantable Pulse Generator Type CLINICAL RESEARCH DIRECTOR-D CV DEVICE CHECK Implantable Pulse Generator Model 3369-40Q Quadra Assura MP(TM) CV DEVICE CHECK Implantable Pulse Generator Serial Number [id number] CV DEVICE CHECK Implantable Pulse Generator Implant Date [id number] CV DEVICE CHECK Battery Remaining Percentage 6.00 CV DEVICE CHECK Battery Remaining Longevity 5.0 CV DEVICE CHECK Battery Voltage 2.650 CV D EVICE CHECK Battery SCREEN AND CYCLONE REPAIRER Trigger 2.590 CV DEVICE CHECK Battery Status Middle of Service CV DEVICE CHECK Capacitor Charge Time 10.600 CV DEVICE CHECK Ludwin Statistic RA Percent Paced 96.00 CV DEVICE CHECK Ludwin Statistic RV Percent Paced 98.80 CV DEVICE CHECK CLINICAL RESEARCH DIRECTOR Statistic CLINICAL RESEARCH DIRECTOR Percent Paced 99.00 CV DEVICE CHECK Atrial Tachy Statistic AT/AF [place] Percent 0.00 CV DEVICE CHECK Lead Channel Sensing Intrinsic Amplitude 3.800 CV DEVICE CHECK Lead Channel Setting Sensing Sensitivity 0.30 CV DEVICE CHECK Lead Channel Impedance Value 400 CV DEVICE CHECK Lead Channel Setting Pacing Amplitude 2.000 CV DEVICE CHECK Lead Channel Setting Pacing Pulse Width 0.5 CV DEVICE CHECK Lead Channel Sensing Intrinsic Amplitude 10.800 CV DEVICE CHECK Lead Channel Setting Sensing Sensitivity 2.00 CV DEVICE CHECK Lead Channel Impedance Value 360 CV DEVICE CHECK Lead Channel Pacing Threshold Amplitude 0.875 CV DEVICE CHECK Lead Channel Pacing Threshold Pulse Width 0.5 CV DEVICE CHECK Lead Channel RV Pacing Threshold Date 2025-07-16 CV DEVICE CHECK Lead Channel Setting Pacing Amplitude 2.000 CV DEVICE CHECK Lead Channel Setting Pacing Pulse Width 0.5 CV DEVICE CHECK Lead Channel Impedance Value 700 CV DEVICE CHECK Lead Channel Setting Pacing Amplitude 1.500 CV DEVICE CHECK Lead Channel Setting Pacing Pulse Width 0.5 CV DEVICE CHECK [place]win Setting Mode (NBG Code) DDDR CV DEVICE CHECK Ventricular chambers paced during CLINICAL RESEARCH DIRECTOR pacing. BiV CV DEVICE CHECK [place]win Setting Lower Rate Limit 70 CV DEVICE CHECK [place]win Setting AT Mode Switch Rate 180 CV DEVICE CHECK Ludwin Setting Maximum Tracking Rate 120 CV DEVICE CHECK [place] Setting Maximum Sensor Rate 120 CV DEVICE CHECK [place]win Setting PAV Delay 160 CV DEVICE CHECK [place]win Setting OZZIE Delay 120 CV DEVICE CHECK CLINICAL RESEARCH DIRECTOR LV-RV Delay 15 CV D EVICE CHECK Therapy Statistic Recent Shocks Delivered 0 CV DEVICE CHECK Therapy Statistic Recent Shocks Aborted 0 CV DEVICE CHECK Therapy Statistic Recent ATP Delivered 0 CV DEVICE CHECK Shock Measured Impedance 57 CV DEVICE CHECK Zone Setting Type Category VT CV DEVICE CHECK Rate 150 CV DEVICE CHECK Zone Setting Status On CV DEVICE CHECK Zone ID 1 CV DEVICE CHECK Zone Setting Type Category VT CV DEVICE CHECK Zone Setting Status Inactive CV DEVICE CHECK Zone ID 2 CV DEVICE CHECK Zone Setting Type Category VF CV DEVICE CHECK Rate 200 CV DEVICE CHECK Therapies 36.0J,40.0J,40.0J x 4 CV DEVICE CHECK Zone Setting Status On CV DEVICE CHECK Zone ID 3 CV DEVICE CHECK Date of Service 2025-09-20 CV DEVICE CHECK Anatomical Region Laterality Modality Device Interroga tion 07/16/2025 3:09 AM EST Impressions 07/22/2025 7:59 AM EST Heart Failure Diagnostic: Stable * Heart failure diagnostics assessed through the device * Status: Stable * No overt HF present Narrative Procedure Note Harpal Oshea MD - 07/22/2025 IMPRESSION: Heart Failure Diagnostic: Stable * Heart failure diagnostics assessed through the device * Status: Stable * No overt HF present us Harpal Oshea MD CV IMPLANTABLE CARDIAC DEV ICE PROCEDURES Final Result * Lipid panel with reflex to direct LDL (07/08/2025 7:50 AM EST) Cholesterol 159 0 - 200 mg/dL 07/08/2025 11:08 AM [facility] Triglycerides 86 0 - 150 mg/dL 07/08/2025 11:08 AM [facility] HDL 99 >=40 mg/dL 07/08/2025 11:08 AM [facility] LDL Calculated 43 0 - 100 mg/dL 07/08/2025 11:08 AM [facility] Comment:Estimated LDL Calcul ated using equation: Total cholesterol - HDL cholesterol - (Triglycerides/5) VLDL Cholesterol Michael 17.2 mg/dL 07/08/2025 11:08 AM [facility] Non HDL Chol. (LDL+VLDL) 60 <145 mg/dL 07/08/2025 11:08 AM [facility] Chol/HDL Ratio 1.6 0.0 - 4.4 07/08/2025 11:08 AM [facility] Blood Venous blood specimen / Unknown Venipuncture / Unknown 07/08/2025 7:50 AM EST 07/08/2025 7:50 AM EST us Mayra PHILLIPS LAB BLOOD ORDERABLES Final Resul t Performing Organization Address City/[facility]/ZIP Co de Phone Number [facility] [address] [place] [address], [place] [phone] * ECG 12 lead (06/17/2025 11:10 AM EST) Ventricular Rate ECG 70 BPM GEMUSE Atrial Rate 70 BPM GEMUSE P-R Interval 206 ms GEMUSE QRS Duration 144 ms GEMUSE Q-T Interval 408 ms GEMUSE QTc 440 ms GEMUSE P Wave [place] 90 degrees GEMUSE R [place] 35 degrees GEMUSE T [place] 175 degrees GEMUSE ECG Interpretation AV dual-paced rhythm Abnormal ECG When compared with ECG of 05-DEC-2024 10:12, No significant change was found Confirmed by Samantha [place] JOHN ([id number]) on 06/19/2025 4:02:48 PM GEMUSE 06/17/2025 10:5 2 AM EST 06/19/2025 4:02 PM EST Mayra PHILLIPS ECG ORDERABLES Edited Result - Final Performing Organization Address City/[facility]/ZIP Co de Phone Number GEMUSE * Basic metabolic panel (12/04/2024 10:40 AM EDT) Sodium 140 133 - 145 mmol/L LAB CHEMISTRY METHOD 12/04/2024 2:[address] [facility] Potassium 4.6 3.5 - 5.5 mmol/L LAB CHEMISTRY METHOD 12/04/2024 2:[address] [facility] Chloride 104 96 - 110 mmol/L LAB CHEMISTRY METHOD 12/04/2024 2:[address] [facility] CO2 30 21 - 32 mmol/L LAB CHEMISTRY METHOD 12/04/2024 2:[address] [facility] Anion Gap 6 3 - 11 LAB CHEMISTRY METHOD 12/04/2024 2:[address] [facility] Glucose 99 70 - 100 mg/dL LAB CHEMISTRY METHOD 12/04/2024 2:[address] [facility] BUN 19 5 - 25 mg/dL LAB CHEMISTRY METHOD 12/04/2024 2:[address] [facility] Creatinine 1.24 0.70 - 1.30 mg/dL LAB CHEMISTRY METHOD 12/04/2024 2:[address] [facility] eGFR 62 >=60 mL/min/1. 73m2 LAB CHEMISTRY METHOD 12/04/2024 2:[address] [facility] Comment:Calculation based on the Chronic Kidney Disease Epidemiology Collaboration (CKD-EPI) equation refit without adjustment for race. BUN/Creatinine Ratio 15.3 LAB CHEMISTRY METHOD 12/04/2024 2:[address] [facility] Calcium 9.2 8.5 - 10.5 mg/dL LAB CHEMISTRY METHOD 12/04/2024 2:[address] [facility] Blood Venous blood specimen / Unknown Venipuncture / Unknown 12/04/2024 10:40 AM EDT 12/04/2024 10:40 AM EDT Leila Dasilva MD LAB BLOOD ORDERABLES Final Resul t [facility] [address] [place] [address], * Falls Risk Assessment (05/17/2024) Falls Risk Assessment Abstracted Historical Provider HEALTH MAINTENANCE Final Result * Depression Screening (05/17/2024) Depression Screening Abstracted Historical Helen [facility] MAINTENANCE Final Result * CT LUNG SCREENING LOW DOSE (08/31/2021 8:43 AM EST) Anatomical Region Laterality Modality Computed Tomogra phy 08/30/2021 8:47 AM EST Narrative 08/31/2021 8:43 AM EST [facility] Diagnostic Imaging Department [address] [place] [address] Patient: TIM COTTRELL Makenna Howell/Age/Sex: 1950 - 71 - M Unit#: [id number] Location/Status: SPDICAT/REG CLI Mnem[facility] Ordering Physician: KAZ DIMAS MD CT Lung Screening Low Dose - 08/30/21855 HISTORY: Former smoker (2019), 50 pack year total COMMENTS: Noncontrast Chest CT examination includes axial imaging from the lung apices through the hemidiaphragms supplemented with coronal and sagittal reformatted images utilizing low-dose screening technique (CloudSponge, 180.65 DLP (mGy-cm), CT utilizing dose reduction technique with automated exposure control based on patient size or use of iterative reconstruction technique). Direct comparison to low-dose screening Chest CT examination: 05/29/2021. Biventricular left subclavian cardiac pacemaker. Cardiac size within normal limits. Left coronary artery calcification. Mild thoracic aorta ectasia, tortuosity, atherosclerotic calcification. No gross thoracic lymphadenopathy by noncontrast CT analysis. Emphysematous disease, scattered bilateral subpleural interstitial fibrosis and bilateral peribronchial thickening (bronchitis). A few scattered less than 5 mm subpleural pulmonary nodules include for example 3 mm right lower lobe subpleural nodule (series 4 image 151), essentially unchanged. Indeterminate posterior basilar right lower lobe rounded clustered noncalcified solid nodules include dominant aggregate nodules measuring up to approximately 1.2 x 2.1 cm (series 4 image 221) as compared to 0.9 x 1.4 cm on 05/29/2021 colon also seen for example on coronal reformatted series 602, image 87. Multilevel thoracic spine degenerative disease. Hepatic dome 1.8 cm rounded low-attenuation lesion, grossly unchanged. Right lower lobe calcified nodule (series 4 image 183) may represent a granuloma. Pancreatic parenchymal volume loss/fatty infiltration (partially imaged). IMPRESSION: Indeterminate interval increased posterior basilar right lower lobe clustered nodular process by noncontrast low-dose screening CT analysis when compared to 05/29/2021. G[address] Telerad G9557 Lung RADS: Category 4A Dictating Physician: BRYANT MAY DO Electronically Signed by: BRYANT MAY DO Dic Date/Time: 08/31/21826 Sign date/Time: 08/31/21842 Procedure Note Bryant May, - 08/04/2022 [facility] Diagnostic Imaging Department [address] [place] [address] Patient: TIM COTTRELL Makenna AnnB./Age/Sex: 1950 - 71 - M Unit#: [id number] [facility] Mnemonic/Ordering [facility] Ordering Physician: KAZ DIMAS MD CT Lung Screening Low Dose - 08/30/21 0856 HISTORY: Former smoker (2019), 50 pack year total COMMENTS: Noncontrast Chest CT examination includes axial imaging from the lungapices through the hemidiaphragms supplemented with coronal and sagittalreformatted images utilizing low-dose screening technique (GE, 180.65 DLP (mGy-cm),CT utilizing dose reduction technique with automated exposure control basedon patient size or use of iterative reconstruction technique). Direct comparison to low-dose screening Chest CT examination:05/29/2021. Biventricular left subclavian cardiac pacemaker. Cardiac size within normal limits. Left coronary artery calcification. Mild thoracic aorta ectasia, tortuosity, atherosclerotic calcification. No gross thoracic lymphadenopathy by noncontrast CT analysis. Emphysematous disease, scattered bilateral subpleural interstitialfibrosis and bilateral peribronchial thickening (bronchitis). A few scattered less than 5 mm subpleural pulmonary nodules include forexample 3 mm right lower lobe subpleural nodule (series 4 image 151),essentially unchanged. Indeterminate posterior basilar right lower lobe rounded clusterednoncalcified solid nodules include dominant aggregate nodules measuring up toapproximately 1.2 x 2.1 cm (series 4 image 221) as compared to 0.9 x 1.4 cm on05/29/2021 colon also seen for example on coronal reformatted series 602, image 87. Multilevel thoracic spine degenerative disease. Hepatic dome 1.8 cm rounded low-attenuation lesion, grossly unchanged. Right lower lobe calcified nodule (series 4 image 183) may represent a granuloma. Pancreatic parenchymal volume loss/fatty infiltration (partiallyimaged). IMPRESSION: Indeterminate interval increased posterior basilar right lower lobeclustered nodular process by noncontrast low-dose screening CT analysis whencompared to 05/29/2021. G[address] Telerad G9557 Lung RADS: Category 4A Dictating Physician: BRYANT MAY DO Electronically Signed by: BRYANT MAY DO Dic Date/Time: 08/31/21826 Sign date/Time: 08/31/2143 Kaz Dimas MD IM CT PROCEDURES Final Result * Colonoscopy (06/23/2021) Colonoscopy No interpretation , abstracted Anatomical Region Laterality Modality Other Historical Provider HEALTH MAINTENANCE Final Result * US ABDOMINAL AORTA REAL TIME SCREEN STUDY AAA (11/27/2018 8:22 AM EDT) Anatomical Region Laterality Modality Ultrasound 11/20/2018 1:00 PM EDT Narrative 11/27/2018 10:12 AM EDT Abdominal aortic ultrasound: HISTORY: AAA screening COMPARISON: Images of the aorta and iliac arteries on 06/28/2014 lumbar spine MRI Abdominal aorta measures 2.8 cm proximally, 2.1 cm mid and 1.5 cm distally. Left common iliac artery is normal in size measuring 1.2 cm in diameter. Right common iliac artery aneurysm measuring 1.9 cm (1.7 cm considered upper limits of normal). IMPRESSION: IMPRESSION: No evidence AAA. Right common iliac artery aneurysm (1.9 cm). Procedure Note Avinash Lundberg MD - 08/03/2022 Abdominal aortic ultrasound: HISTORY: AAA screening COMPARISON: Images of the aorta and iliac arteries on 06/28/2014 lumbarspine MRI Abdominal aorta measures 2.8 cm proximally, 2.1 cm mid and 1.5 cmdistally. Left common iliac artery is normal in size measuring 1.2 cm in diameter. Right common iliac artery aneurysm measuring 1.9 cm (1.7 cm consideredupper limits of normal). IMPRESSION: IMPRESSION: No evidence AAA. Right common iliac artery aneurysm (1.9cm). 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
--- OUTSIDE RECORDS SUMMARY | 2025-08-01 10:39 | XMS_ITS | Encounter Summary ---
Author Organization [facility] Address [address] [place] [address] Care Team Providers Care Business Management Consultant Name Role Phone Leila Dasilva MD Primary Care Provider [phone] Encounter Details Date Type Department Care Team ([facility] st Contact Info) Description 07/08/2025 Results Follow-Up [facility] - [facility] [address] [facility] [address] [place] [phone] Mayra Bui PA [address] [place] [address] [address] [place] [phone] Social History Tobacco Use Types Packs/Day Years Used Date Smoking Tobacco: Former Cigarettes 1.5 Q uit: 08/15/2018 Smokeless Tobacco: Never Alcohol Use Standard Drinks/Week Comments Yes 0 [...] for your loved ones. For example, child welfare social worker or elderly care for an older adult? [...] Orientation Straight 12/02/2024 3: 49 PM EDT documented as of this encounter Plan of Treatment Upcoming Encounters Date Type Department Care Team (Late st Contact Info) Description 09/11/2025 9:00 AM EST Ancillary Procedure [facility] - [address] [facility] [address] [place] [phone] documented as of this encounter Visit Diagnoses Not on filedocumented in this encounter Additional Health Concerns Assessment Noted Time PHQ-9 Depression Total Score: 0 09/05/19 8:43 AM EST documented as of this encounter Care Teams Business Management Consultant Relationship Specialty Start Date End Date Leila Dasilva MD [address] [place] [address] PCP - General Internal Medicine 09/05/24 documented as of this encounter
== END 2025-08-01 10:22 | disposition home or self-care (01) ==
LOC: HO.HSMS 09:17
PROVIDERS: PCP Internal Medicine; Visit Provider Nurse Practitioner Family
DX: H53.9 Unspecified visual disturbance (principal); H53.121 Transient visual loss, right eye; I65.02 Occlusion and stenosis of left vertebral artery
CPT/HCPCS: 99214

== ENCOUNTER → 2025-08-01 09:17 | Outpatient (BNVA) | payer MEDICARE, OTHER, SELFPAY | PROVIDERS: PCP Internal Medicine; Visit Provider Nurse Practitioner Family | DX: H53.121 Transient visual loss, right eye (principal); I65.02 Occlusion and stenosis of left vertebral artery; H53.9 Unspecified visual disturbance | CPT/HCPCS: 99212 ==